=== PATIENT | male | born 2005 | race Two or more races ===

== ENCOUNTER 2025-04-19 22:25 | Emergency (ER) | payer SELFPAY ==
[~2025-04-19] VITALS: Ht 167.6 cm; Wt 68.0 kg
[2025-04-20] MEDS: SODIUM CHLORIDE 0.9% 2,000 ML IV ONE
--- NOTE | 2025-04-20 00:15 | ED.PDOC ---
History of Present Illness HPI Comments 19 y/o M is BIBA for alcohol intoxication. Patient was reported to have been found laying outside in the grass intoxicated and smelling of alcohol after unknown alcohol consumption amount. Chief Complaint: ETOH Time Seen by MD: 23:50 Reviewed Notes: Nurses Notes, Medications, Allergies Mode of Arrival: EMS Past Medical History PAST MEDICAL HISTORY: Denies Surgical History: Denies all surgeries Family History Family History: Unknown Social History Smoker: Non-Smoker Alcohol: Denies ETOH Use Drugs: Denies Drug Use Lives In: Home All Other Systems: Reviewed and Negative (as per HPI) Physical Exam General Appearance: No Apparent Distress, Normal, Other (intoxicated, with dry emesis to front of shirt) HEENT: Normal ENT Inspection, Pharynx Normal, TMs Normal, Other (pupils 3mm in diameter, bilaterally) Neck: Full Range of Motion, Non-Tender, Normal, Normal Inspection Respiratory: Chest Non-Tender, Lungs Clear, No Accessory Muscle Use, No Respiratory Distress, Normal Breath Sounds Cardiovascular: No Edema, No JVD, No Murmur, No Gallop, Normal Peripheral Pulses, Regular Rate/Rhythm Breast Exam: Deferred Gastrointestinal: No Organomegaly, Non Tender, No Pulsatile Mass, Normal Bowel Sounds, Soft Genitalia: Deferred Pelvic: Deferred Rectal: Deferred Extremities: No calf tenderness, Normal capillary refill, Normal inspection, Normal range of motion, Non-tender, No pedal edema Musculoskeletal : Apperance: Normal Neurologic: Alert, biztalk consultant II-XII nml as Tested, No Motor Deficits, Normal Affect, Normal Mood, No Sensory Deficits Cerebellar Function: Normal Reflexes: Normal Skin: Dry, Normal Color, Warm Lymphatic: No Adenopathy Was a procedure done? Was a procedure done?: No Differential Dx Considerations may include: alcohol intoxication, substance abuse, among others X-Ray, Labs, Meds, VS Vital Signs Date Time Temp Pulse Resp B/P (MAP) Pulse Ox O2 Delivery O2 Flow Rate FiO2 04/20/25 07:35 97.9 83 16 138/91 (107) 98 97.9 04/20/25 07:25 83 16 98 Room Air* 0 21 04/20/25 05:55 98.1 77 18 99/55 (70) 97 98.1 04/20/25 02:48 97.9 68 18 95/55 (68) 97 97.9 04/20/25 01:44 98.1 72 18 98/64 (75) 97 98.1 04/20/25 01:44 68 18 7 Room Air* 0 21 04/19/25 22:36 98.9 102 14 113/88 100 98.9 Time of 1ST Reevaluation: 00:20 Reevaluation 1ST: Unchanged Time of 2ND Reevaluation: 02:39 Reevaluation 2ND: Improved Patient Education/Counseling: Diagnosis, Treatment, Need For Follow Up Family Education/Counseling: No Family Present Comments Patient is intoxicated. Otherwise there is no complications. Throughout the hours of observation patient is progressively becoming more sober. We will keep the patient here until daylight so he can be safely discharged. In the meantime I will sign this patient out to Dr. Chilel Additional Information Previous visits: N/A The following tests were ordered, and results were reviewed by me: N/A Additional Information was gathered from interviewing the following independent historians: EMS I reviewed and agreed with the following test results read by other providers: N/A I discussed treatment and results with medical personnel and: patient SEPSIS Sepsis Screen Date sepsis recognized/suspect: Apr 19, 2025 Time Sepsis recognized/suspect: 2239 Recent Procedure: No On Antibiotic Therapy: No Respiratory Rate >20: No Heart Rate >90: Yes Temp<36 C (96.8 F) or >38.3 C: No SBP <90 or MAP <65 mmHG: No New Acute Mental Status Change: No Is the patient on CPAP, BIPAP,: No Vital Signs Date Time Temp Pulse Resp B/P (MAP) Pulse Ox O2 Delivery O2 Flow Rate FiO2 04/20/25 07:35 97.9 83 16 138/91 (107) 98 97.9 04/20/25 07:25 83 16 98 Room Air* 0 21 04/20/25 05:55 98.1 77 18 99/55 (70) 97 98.1 04/20/25 02:48 97.9 68 18 95/55 (68) 97 97.9 04/20/25 01:44 98.1 72 18 98/64 (75) 97 98.1 04/20/25 01:44 68 18 7 Room Air* 0 21 04/19/25 22:36 98.9 102 14 113/88 100 98.9 Departure 1 Departure Time of Disposition: 14:54 Impression: Primary Impression: Alcohol intoxication Qualified Codes: F10.920 - Alcohol use, unspecified with intoxication, uncomplicated Disposition: 01 HOME / SELF CARE / HOMELESS Condition: Good Discharged With: Self Critical Care Note Critical Care Time?: No Stability Stability form required: No Heart Score Heart Score: Heart Score Response (Comments) Value History N/A 0 EKG N/A 0 Age N/A 0 Risk Factors N/A 0 Troponin N/A 0 Total 0 I personally scribed for JONO SHETH MD ([email or web address]) on 04/20/25 at 00:15. Electronically submitted by Munir Monsivais ([email or web address]). JONO SHETH MD Apr 20, 2025 00:15
[2025-04-20 01:44] VITALS: PULSE 68; RESP 18; O2SAT 7
[2025-04-20 07:25] VITALS: PULSE 83; RESP 16; O2SAT 98
[2025-04-20 07:35] VITALS: BP 138/91; PULSE 83; RESP 16; TEMP 97.9; O2SAT 98
== END 2025-04-20 08:04 | disposition home or self-care (01) ==
LOC: EDBD 22:25 → ER 22:25
DX: F10.129 Alcohol abuse with intoxication, unspecified (principal); Z79.899 Other long term (current) drug therapy; Y90.9 Presence of alcohol in blood, level not specified
CPT/HCPCS: 96360; 99285; J7030